=== PATIENT | female | born 1995 | race Caucasian/White ===

== ENCOUNTER 2016-12-26 15:55 | Outpatient (CLI) | payer OTHER ==
[~2016-12-26 15:55] MED LIST: ANTIOXIDANT PO; ASCO100061 PO; FOLI1TAB7 PO; SUPER FOOD PO; [UNRECOGNIZED DRUG - CODE] PO
[2016-12-26 16:39] LABS: BASO % 0.2 %; BASO ABS # 0.02 K/uL (0-0.2); EOS % 0.5 %; HEMATOCRIT 34.2 % (37-47); IG% 0.2 %; LYMPH % 10.6 %; LYMPH ABS # 1.08 K/uL (1.2-3.4); MEAN CELL VOLUME 89.5 fL (80-100); MEAN CORPUSCULAR HEMOGLOBIN 31.9 pg (25-34); MEAN PLATELET VOLUME 10.1 fL (7.4-10.4); MONO % 11.1 %; NEUT % 77.4 %; PLATELET COUNT 187 K/uL (130-400); RED BLOOD COUNT 3.82 M/uL (4.2-5.4); WHITE BLOOD COUNT 10.22 K/uL (4.8-10.8)
[2016-12-26 16:41] LABS: COMPLETE YES; MEAN CORPUSCULAR HGB CONC 35.7 g/dl (32-36)
[2016-12-26 17:03] LABS: ALKALINE PHOSPHATASE 111 U/L (45-117); ALT/SGPT 20 U/L (12-78); AST/SGOT 19 U/L (15-37); CREATININE 0.56 mg/dl (0.60-1.20); URIC ACID 2.9 mg/dl (2.6-7.2)
[2016-12-26] MEDS ORDERED: PRENTAB26 PO (18:18)
== END 2016-12-26 17:50 | disposition home or self-care (01) ==
LOC: C.LD 15:55 → C.OPB 15:55
PROVIDERS: ATTEND Obstetrics & Gynecology
DX: O99.89 Other specified diseases and conditions complicating pregnancy, childbirth and the puerperium (principal); R03.0 Elevated blood-pressure reading, without diagnosis of hypertension; Z3A.36 36 weeks gestation of pregnancy

== ENCOUNTER 2017-01-27 09:35 | Inpatient (IN) | payer OTHER ==
[~2017-01-27] VITALS: Ht 165.1 cm; Wt 85.5 kg
[~2017-01-27 09:35] MED LIST changes: -ANTIOXIDANT PO; -ASCO100061 PO; +PRENTAB26 PO; -SUPER FOOD PO; -[UNRECOGNIZED DRUG - CODE] PO
[2017-01-27 10:43] VITALS: Ht 165.1 cm; Wt 85.5 kg
[2017-01-27] MEDS ORDERED: LACTATED RINGER'S 1000ML 1,000 ML IV PRN (11:30)
[2017-01-27 11:57] LABS: HEMATOCRIT 37.5 % (37-47); MEAN CELL VOLUME 89.1 fL (80-100); MEAN CORPUSCULAR HEMOGLOBIN 31.1 pg (25-34); MEAN CORPUSCULAR HGB CONC 34.9 g/dl (32-36); MEAN PLATELET VOLUME 10.8 fL (7.4-10.4); PLATELET COUNT 212 K/uL (130-400); RED BLOOD COUNT 4.21 M/uL (4.2-5.4); WHITE BLOOD COUNT 14.52 K/uL (4.8-10.8)
[2017-01-27] MEDS: LACTATED RINGER'S 1000ML 1,000 ML IV SCH ×2 (12:27→12:39)
[2017-01-27] MEDS ORDERED: BUPIVACAINE 0.25% 30 ML VIAL ONE (12:47)
[2017-01-27] MEDS ORDERED: FENTANYL 2MCG/ML ROPIV 1.25MG/ML 100ML BAG EPI ONE (12:47)
[2017-01-27] MEDS ORDERED: EpHEDrine SULFATE INJ 50 MG/ML AMP ONE (12:47)
[2017-01-27] MEDS ORDERED: FENTANYL CITRATE INJ 50 MCG/1 ML 2 ML VIAL ONE (12:48)
[2017-01-27] MEDS ORDERED: LACTATED RINGER'S 1000ML 500 ML IV PRN (17:43)
[2017-01-27] MEDS ORDERED: NALOXONE HCL INJ 1 MG in SODIUM CHLORIDE 0.9% 1000ML 1,000 ML IV PRN (17:43)
[2017-01-27] MEDS ORDERED: EpHEDrine SULFATE INJ 50 MG/ML AMP IV PRN (17:45)
[2017-01-27] MEDS ORDERED: NALOXONE HCL INJ 0.4 MG/1 ML VIAL/CARP IV PRN (17:45)
[2017-01-27] MEDS ORDERED: DiphenhydrAMINE HCL 50 MG/ML VIAL IV PRN (17:45)
[2017-01-27] MEDS ORDERED: NALBUPHINE HCL INJ 10 MG/ML AMP IV PRN (17:45)
[2017-01-27] MEDS ORDERED: FENTANYL 2MCG/ML ROPIV 1.25MG/ML 100ML BAG EPI PRN (17:45)
[2017-01-27] MEDS ORDERED: ONDANSETRON INJ 2 MG/ML 2 ML VIAL IV PRN (17:45)
[2017-01-27] MEDS ORDERED: PROMETHAZINE HCL INJ 6.25 MG in SODIUM CHLORIDE 0.9% 50ML 50 ML IV PRN (17:45)
[2017-01-27] MEDS ORDERED: OXYTOCIN 30 UNITS/500ML NSS IV ONE (19:30)
[2017-01-27] MEDS ORDERED: MISOPROSTOL 200 MCG TAB ONE (19:56)
[2017-01-27] MEDS ORDERED: ACETAMINOPHEN 325 MG TAB PO PRN (20:00)
[2017-01-27] MEDS ORDERED: DIPHTHERIA/TETANUS/PERTUSSIS 0.5 ML SYR/VIAL IM. ONE (20:00)
[2017-01-27] MEDS ORDERED: ACETAMINOPHEN/CODEINE 300/30MG TAB PO PRN ×2 (20:00)
[2017-01-27] MEDS: DOCUSATE SODIUM 100 MG CAP PO SCH (20:00)
[2017-01-27] MEDS ORDERED: HYDROCORTISONE ACETATE 25 MG SUPP PR PRN (20:00)
[2017-01-27] MEDS ORDERED: SUPERCREAM 0.870 % 15GM JAR EXT PRN (20:00)
[2017-01-27] MEDS ORDERED: LANOLIN OINT EXT PRN ×2 (20:00)
[2017-01-27] MEDS ORDERED: BENZOCAINE 20% AER SPR 82.5 GM CAN EXT PRN (20:00)
[2017-01-27] MEDS ORDERED: IBUPROFEN 600 MG TAB PO PRN (20:00)
[2017-01-27] MEDS ORDERED: OXYTOCIN 30 UNITS/500ML NSS IV PRN (20:00)
--- NOTE | 2017-01-27 20:16 | DELIVERY SUMMARY ---
DATE OF OPERATION: 01/27/2017 The patient dilated to complete and pushed to deliver a viable male , Apgars 8 and 9 via over small vaginal laceration. Nose and mouth were bulb suctioned at the perineum. Shoulders and body delivered with ease, body cord noted. vigorous and crying at . Placenta delivered spontaneously and intact with 3-vessel cord. Cervix and sulci intact. Laceration repaired in the usual fashion using 3-0 Vicryl. This was with a single [id number] suture. Left labial hematoma noted but not expanding and left alone. Bladder drained under sterile conditions for 100 mL of urine. Bleeding did increase and therefore, bimanual massage and uterine evaluation took place and uterine tone was poor. This was despite dilute Pitocin. For that reason, 800 mcg of rectal Cytotec was administered. Uterine tone did improve. Hemostasis was deemed adequate. Mother and baby stable in recovery. Final EBL 500 mL. I attest to the content of the Intraoperative Record and any orders documented therein. Any exceptions are noted below. MTDD
[2017-01-27] MEDS: OXYTOCIN INJ 20 UNITS in LACTATED RINGER'S 1000ML 1,000 ML IV SCH (20:54)
[2017-01-27 22:20] VITALS: BP 123/73; PULSE 71; TEMP 36.7
[2017-01-27 23:40] VITALS: BP 114/70; PULSE 62; TEMP 36.9; O2SAT 99
[2017-01-28 04:00] VITALS: BP 114/68; PULSE 62; TEMP 36.9; O2SAT 100
[2017-01-28] MEDS: OXYTOCIN INJ 20 UNITS in LACTATED RINGER'S 1000ML 1,000 ML IV SCH (04:54)
[2017-01-28 07:29] LABS: HEMATOCRIT 32.4 % (37-47)
[2017-01-28 07:30] VITALS: BP 113/71; PULSE 62; TEMP 36.9
--- NOTE | 2017-01-28 07:51 | Progress Note ---
Subjective Jan 28, 2017. Subjective conversation w/ patient, physical exam Ambulation: ambulating normally Voiding: no voiding problems Diet Tolerance: Regular Diet Lochia: Small Feeding Type: Breast Feeding Comment: wants to go home today. Objective Vital Signs Date Time Temp Pulse Resp B/P Pulse Ox O2 Delivery O2 Flow Rate FiO2 01/28/17 04:00 36.9 62 20 114/68 100 Room Air 01/27/17 23:40 36.9 62 20 114/70 99 Room Air 01/27/17 23:40 99 Room Air 01/27/17 22:20 36.7 71 20 123/73 Room Air 01/27/17 22:20 Room Air Physical Exam General Appearance: WELL-APPEARING, WD/WN, NO APPARENT DISTRESS Respiratory/Chest: lungs clear Cardiovascular: regular rate, rhythm Abdomen: non tender, soft Fundus: Firm, Relation to Umbilicus (2 down) Extremities: non-tender Laboratory Results Last 24 Hours Test 01/27/17 11:45 01/28/17 06:42 White Blood Count 14.52 K/uL Red Blood Count 4.21 M/uL Hemoglobin 13.1 g/dL 11.4 g/dL Hematocrit 37.5 % 32.4 % Mean Corpuscular Volume 89.1 fL Mean Corpuscular Hemoglobin 31.1 pg Mean Corpuscular Hemoglobin Concent 34.9 g/dl RDW Standard Deviation 40.7 fL RDW Coefficient of Variation 12.6 % Platelet Count 212 K/uL Mean Platelet Volume 10.8 fL Assessment and Plan Post- Day#: 1 Continue Routine Care: stable, routine care. desires d/c home if baby ok. nursery aware. reviewed instructions. plan 6wks pp check.
--- NOTE | 2017-01-28 07:52 | Discharge Instructions ---
Discharge Instructions Date of Service Jan 28, 2017. Admission Reason for Admission: Check Labor Discharge Discharge Diagnosis / Problem: s/p delivery Discharge Goals Goal(s): Routine recovery after delivery Medications Continue Dispensed Medications: supercream, dermaplast, tucks, lansinoh Activity Recommendations Activity Limitations: as noted below . Instructions / Follow-Up Instructions / Follow-Up ACTIVITY RECOMMENDATIONS: * Gradual return to full activity over the next 2-3 weeks. * No lifting - nothing heavier than baby over the next 2-3 weeks. * Do not engage in vigorous exercise, sexual activity or sports until cleared by your physician. * Do not drive or operate any motorized equipment until cleared by your physician. * You may shower/bathe daily. MEDICATIONS: For discomfort or pain, you may use Acetaminophen (Tylenol), Ibuprofen (Advil), or Naproxen (Aleve) following the package directions. For constipation you may use Colace following the package directions. BREAST CARE: If you are not breast feeding: * Wear a supportive bra 24 hours a day for one to two weeks. * Avoid stimulating your breasts and nipples as much as possible during the first few weeks after delivery. * When taking a shower, have the warm water hit your back, not breasts. * When your breasts feel full, apply ice packs. Usually three to four times a day helps ease the discomfort. * Take a mild pain medication (Tylenol / Motrin) when you are uncomfortable. If breast feeding: * Use breast milk to lubricate nipples. Lansinoh cream may be used for sore nipples. You do not need to remove cream prior to breast feeding. If using a different brand of cream, check the label for directions regarding removal of cream prior to nursing. * Wear a supportive bra. * If having problems with breasts or breast feeding, call a clinical services consultant or your health care provider. EPISIOTOMY CARE: After delivery, if you have an episiotomy (stitches), the following steps will ease discomfort and aid healing. * For the first 24 hours after delivery, place ice packs next to your episiotomy to help reduce swelling. * After the first 24 hour-period, sitz baths, either portable or in the tub, are suggested. A shower with a shower arm sprayed over the episiotomy may be comforting. * Alejandra care should be done after each voiding and bowel movement. Squirt warm water from a plastic bottle over the perineum (region of the body between the anus and urinary opening) and pat dry. * Use Dermoplast to ease discomfort. Shake container. Carlton directly over the episiotomy. Place a Tucks on a clean sanitary pad next to your episiotomy. SPECIAL CARE INSTRUCTIONS: When you are discharged from the hospital, it is important for you to follow the instructions listed below: * During the first week at home, you should be able to care for yourself and your baby. In addition, the usual light household activities are encouraged. * Limit your activities to the way you feel. Do not try to clean the house or move furniture. Be sensible. * If you actively engage in sports and have done so up until the time of your delivery, you may resume these activities as soon as you feel able. This may take up to one month or even longer. Use good judgment. * Continue to take your vitamins for at least six weeks after the of your baby. * Your diet need not be limited unless you were on a special diet before your delivery. Breast-feeding mothers need around 2500 calories per day and at least 64-80 ounces of fluid per day (8 to 10 glasses). * You should eat foods from the four major food groups. Crash diets or fad diets are to be avoided. Eating lean meats, fresh fruits and vegetables, low-fat dairy products, high fiber foods and a regular exercise program, will help you get back to your pre- weight without putting your health at risk. * Constipation is sometimes a problem after delivery. Take a mild laxative as needed. If breast feeding, Milk of Magnesia is acceptable to use. You may use a suppository or Fleets enema if no episiotomy. * A daily shower or tub bath is suggested. Be sure to thoroughly and gently dry the perineum. * A bloody vaginal discharge will usually continue until around four weeks post . A small amount of bleeding may continue for as long as six weeks. Vaginal discharge changes from the bright red bleeding after delivery to pink then brownish and finally yellowish-pink before becoming white and disappearing. * Bleeding may increase with activity. Your first period may come in 4-8 weeks. If you are breast feeding, your period may be delayed even longer. * Angels (sex) can begin whenever both you and your partner feel comfortable and do not have any form of genital infection. It is recommended that you wait at least six weeks for internal and external healing to occur. If you have questions, please talk to your health care practitioner. A condom should be used to prevent infection and . * Foreplay, gentle intercourse and lubrication is very important the first several times to prevent pain. A water-based lubricant such as K-Y jelly or Astroglide may be used. * If you have RH negative blood and your baby is RH positive, you will receive RHOGAM by injection prior to discharge. The nurse will give you a card to keep with you that has the date and place that you received RHOGAM after delivery. * During your care, you had a Rubella screen done to check for the presence of rubella antibodies in your blood. If your test was negative, you will receive a Rubella vaccine prior to discharge. This vaccine may cause a fever, soreness at the injection site and flu-like symptoms. If these symptoms persist, notify your health care practitioner. is not advised for one month after a Rubella vaccine. * Verbalizes understanding of car seat law as reviewed with patient nursing. * Car Seat hand-out given and reviewed with patient by nursing. * Shaken baby information reviewed with patient by nursing. Call you doctor if: * Heavy bleeding (saturating several pads an hour) or passing clots the size of your fist. * A fever >101 degrees F (38.3 degrees C) on two occasions four hours apart and /or chills. * Unusual pain in the pelvic or vaginal areas. * "Baby Blues" lasting longer than two weeks. If you have any questions or concerns, call your health care practitioner at . FOLLOW UP VISIT: * Please call the office at to schedule a 6 week examination. It is important you keep this appointment. It is important for you to make arrangements for either yearly or twice yearly check-ups thereafter. Current Hospital Diet Patient's current hospital diet: Regular OB Diet Discharge Diet Recommended Diet: Regular Diet Pending Studies Studies pending at discharge: no Medical Emergencies . Who to Call and When: Medical Emergencies: If at any time you feel your situation is an emergency, please call 911 immediately. . Non-Emergent Contact Non-Emergency issues call your: Inspector Floor [employer] . . "Provider Documentation" section prepared by Loly Myers. VTE Core Measure Inpt VTE Proph given/why not?: Treatment not indicated
[2017-01-28] MEDS: DOCUSATE SODIUM 100 MG CAP PO SCH ×2 (08:00→20:34)
--- NOTE | 2017-01-28 09:12 | Anesthesia Procedure Note ---
Anesthesia Epidural Removal Nt Date & Time Jan 28, 2017 at 09:12 Vital Signs Pain Intensity: 1.0 Vital Signs Past 12 Hours Date Time Temp Pulse Resp B/P Pulse Ox O2 Delivery O2 Flow Rate FiO2 01/28/17 07:30 Room Air 01/28/17 07:30 36.9 62 20 113/71 Room Air 01/28/17 04:00 36.9 62 20 114/68 100 Room Air 01/27/17 23:40 36.9 62 20 114/70 99 Room Air 01/27/17 23:40 99 Room Air 01/27/17 22:20 36.7 71 20 123/73 Room Air 01/27/17 22:20 Room Air Notes Mental Status: alert / awake / arousable, participated in evaluation Nausea / Vomiting: adequately controlled Pain: adequately controlled Airway Patency, RR, SpO2: stable & adequate BP & HR: stable & adequate Hydration State: stable & adequate Neuraxial Anesthesia: was administered, sensory block is resolved Anesthetic Complications: no major complications apparent, pt satisfied with anesthetic care Epidural: removed without complications, with tip intact
[2017-01-28 11:45] VITALS: BP 108/64; PULSE 56; TEMP 36.6
[2017-01-28 15:30] VITALS: BP 99/61; PULSE 62; TEMP 36.9
[2017-01-28 21:45] VITALS: BP_DIAS 61; PULSE 62; TEMP 36.9
== END 2017-01-28 21:45 | disposition home or self-care (01) | DRG 775 ==
LOC: C.LD 09:35 → C.OPB 09:35 → C.LD 11:32 → C.OPB 11:38 → C.OBG 22:40
PROVIDERS: ADMIT Obstetrics & Gynecology; ATTEND Obstetrics & Gynecology
PROC: 10E0XZZ Delivery of Products of Conception, External Approach (ICD-10-PCS; principal; 2017-01-27)
PROC: 0HQ9XZZ Repair Perineum Skin, External Approach (ICD-10-PCS; principal; 2017-01-27)
DX: O48.0 Post-term pregnancy (principal); Z3A.40 40 weeks gestation of pregnancy; Z37.0 Single live birth; O71.89 Other specified obstetric trauma; O70.0 First degree perineal laceration during delivery

== ENCOUNTER 2020-06-07 13:28 | Inpatient (IN) ==
[2020-06-07] MEDS ORDERED: OXYTOCIN 30 UNITS/500 ML BAG IV PRN ×2 (13:32→17:49)
--- NOTE | 2020-06-07 13:39 | History & Physical Report ---
Date of Service June 07, 2020 Assessment & Plan (1) : Pt doing well and came from OB office. Orders placed including labs. GBS negative status. Rubella equivocal --> will plan for MMR pp. Patient planning for unmedicated . Expect . History of Present Illness Primary Care Provider: NO PCP Chandni Nesbitt is a 25 y/o female currently at 40w4d GA with an NOHEMI 020 as determined by LMP who is here for . Patient was in office and NST was not reactive but Cat I, TOCO Q2min, and cervical check showed pt to be 6cm dilated. She was sent to L&D for . + contractions; + movement; - fluid loss; + bloody show Had regular appointments with OB. Blood type: A+ Antibody screen: Neg H (03/16/20) Hct: 36% (03/16/20) Rubella: Equivocal --> plan for MMR pp VDRL/RPR: Neg (12/30/19) Gonorrhea: Neg (12/30/19) Chlamydia: Neg (12/30/19) HIV: Neg (12/30/19) HbSAg: Neg (12/30/19) GBS: Neg (05/12/20) Allergies Allergy/AdvReac Type Severity Reaction Status Date / Time No Known Allergies Allergy Verified 05/28/20 11:47 Home Medications Home Medications Medication Instructions Recorded Confirmed Type prenat.vits,luis enrique,[id number] 1 tab PO DAILY 12/30/19 05/28/20 History ferrous sulfate PO 01/27/20 05/28/20 History Patient History Medical History (Updated 04/08/20 @ 20:26 by Amandeep Rubio Jr, MD, FACOG) Abnormal biochemical finding on screening of mother Encounter for anatomic survey Ovarian cyst Torsion of ovary and ovarian pedicle 2011 Varicella vaccine Surgical History (Updated 12/30/19 @ 10:51 by Caro Parnell) History of right salpingo-oophorectomy Social History (Updated 12/30/19 @ 11:08 by Caro Parnell) Smoking Status: Never smoker Hx Alcohol Use: No Hx Substance Use: No Preferred Language: Lao Communication Ability: Effective Roll Icer Machine Required: No Beliefs That Will Affect Care: None marital status: marital status details: Reymundo Nesbitt (25) office number [phone] Current Living Situation: Spouse Current Living Situation Comment: lives with and son, no pets Feels Safe at Home: Yes Review of Systems Denies fever or chills. Denies shortness of breath or cough. Denies chest pain. Denies headache or changes in vision. Physical Exam Physical Exam: General: Alert, oriented. No acute distress. Cardiac: Regular rate and rhythm, no murmurs. Respiratory: Clear to auscultation bilaterally a/p, no wheezes/rales/rhonchi. No respiratory distress. Abdomen: Gravid. Full term. Pelvic: Dilation 7cm; Effacement 100%; Station [address] Johnson Lower Extremities: No lower extremity edema or swelling. Genitourinary: OB Exam Abdomen: + vertex, + estimated weight (6-7#) and + regular contractions Manual OB Exam: + cervical dilation 7 cm, + cervical effacement 100% and + station 0 OB Exam Monitor Tracing: + external FHT monitor used, + external uterine monitor used and + category II Supervising Physician Co-Signing Physician Notes Resident Physician Supervision Note: I interviewed and examined the patient. Discussed with Dr. Hankins and agree with findings and plan as documented in the note. Any exceptions or clarifications are listed here: [None] Documented By: Louisa Gannon MD, FACOG
[2020-06-07 14:02] LABS: Hematocrit (blood only) 38.4 % (37-47); Hemoglobin 13.6 g/dL (12.0-16.0); Mean Corpuscular Hemoglobin 33.1 pg (25-34); Mean Corpuscular Volume 93.4 fL (80-100); Mean Platelet Volume 11.6 fL (7.4-10.4); Platelet Count 207 K/uL (130-400); RDW Standard Deviation 44.3 fL (36.4-46.3); Red Blood Count 4.11 M/uL (4.2-5.4); White Blood Count 11.39 K/uL (4.8-10.8)
[2020-06-07 14:05] LABS: Mean Corpuscular Hgb Conc 35.4 g/dL (32-36)
[2020-06-07] MEDS: LACTATED RINGER'S 1,000 ML IV PRN ×2 (14:11→17:24)
[2020-06-07] MEDS ORDERED: fentaNYL citrate 100 MCG/2 ML VIAL ONE (15:19)
[2020-06-07] MEDS ORDERED: ePHEDrine sulfate 50 MG/ML AMP ONE (15:19)
[2020-06-07] MEDS ORDERED: BUPIVACAINE 0.25% 30 ML VIAL ONE (15:19)
[2020-06-07] MEDS ORDERED: fentaNYL 2MCG/ML ROPIV 1.25MG/ML 100 ML BAG EPI ONE (15:20)
--- NOTE | 2020-06-07 15:29 | Anesthesiology Consultation ---
Date of Service June 07, 2020 Assessment & Plan ASA ASA2 Proposed Anesthesia Anesthesia Type: Labor Epidural Risk / Benefits Reviewed With: PT / POA / Parent / Guardian, Accepts Plan and Informed Consent Obtained History Height/Weight Height: 5 ft 5 in Weight: 75.296 kg Allergies Allergy/AdvReac Type Severity Reaction Status Date / Time No Known Allergies Allergy Verified 05/28/20 11:47 Medications Home Medications Medication Instructions Recorded Confirmed Last Taken prenat.vits,luis enrique,[id number] 1 tab PO DAILY 12/30/19 05/28/20 Unknown ferrous sulfate PO 01/27/20 05/28/20 Unknown Active Medications Generic Name Dose Route Start Last Admin Trade Name Freq PRN Reason Stop Dose Admin Lactated Ringer's 1,000 mls @ 125 mls/hr 06/07/20 13:32 06/07/20 15:12 Lr IV 06/09/20 13:31 999 mls/hr .Q8H PRN Infusion L&D Protocol Protocol Past Medical History Medical History Abnormal biochemical finding on screening of mother Encounter for anatomic survey Ovarian cyst Torsion of ovary and ovarian pedicle 2011 Varicella vaccine Exercise / Class Metabolic Activity II 4-5 Yardwork/Stairs/Walk up hill Past Family History Family History Mother Hypertension Other Endometriosis Past Surgical History Surgical History History of right salpingo-oophorectomy Past Anesthesia History No Hx of Anesthesia Complications and No Family Hx of Anesthesia Complications History of PONV No Hx of PONV and No Hx of Motion Sickness Social History Smoking Status: Never smoker Hx Alcohol Use: No Hx Substance Use: No Review of Systems denies fever/cough/ colds/ chest pain/ SOB/ LAURYN Constitutional: no fever and no chills Respiratory: no cough and no dyspnea denies LAURYN Cardiovascular: no chest pain and no dyspnea on exertion Physical Exam Vital Signs Last Vital Signs Temp 36.9 C 06/07/20 13:50 Pulse 69 06/07/20 15:55 Resp 18 06/07/20 13:50 BP 107/65 06/07/20 15:55 Pulse Ox 95 06/07/20 15:55 ENMT Mouth: no TMJ abnormality and no dentition abnormality Thyromental Distance: > or= 3.5 Finger Breadths Mallampati Class: II Neck neck extension not limited Respiratory normal respiratory effort; no respiratory distress Auscultation: lungs clear to auscultation bilaterally Cardiovascular Rate/Rhythm: regular rate and regular rhythm Neurologic moves all extremities Psychiatric Orientation: alert and oriented x 3 Testing Laboratory Results 06/07/20 13:49
[2020-06-07] MEDS ORDERED: ePHEDrine sulfate 50 MG/ML AMP IV PRN (15:59)
[2020-06-07] MEDS ORDERED: fentaNYL 2MCG/ML ROPIV 1.25MG/ML 100 ML BAG EPI PRN (15:59)
[2020-06-07] MEDS ORDERED: NALOXONE HCL 1 MG in SODIUM CHLORIDE 0.9% 1000ML 1,000 ML IV PRN (15:59)
[2020-06-07] MEDS ORDERED: DiphenhydrAMINE HCL 50 MG/ML VIAL IV PRN (15:59)
[2020-06-07] MEDS ORDERED: NALOXONE HCL 0.4 MG/1 ML VIAL/CARP IV PRN (15:59)
[2020-06-07] MEDS ORDERED: ONDANSETRON INJ 2 MG/ML 2 ML VIAL IV PRN (15:59)
[2020-06-07] MEDS ORDERED: IBUPROFEN 600 MG TAB PO PRN (17:49)
[2020-06-07] MEDS ORDERED: MEASLES, MUMPS & RUBELLA VIRUS VIAL SQ ONE (17:49)
[2020-06-07] MEDS ORDERED: bisacodyL 10 MG SUPP PR PRN (17:49)
[2020-06-07] MEDS ORDERED: ACETAMINOPHEN 325 MG TAB PO PRN (17:49)
[2020-06-07] MEDS ORDERED: BENZOCAINE 20% AER SPR 82.5 GM CAN EXT PRN (17:49)
[2020-06-07] MEDS ORDERED: OXYCODONE/ACETAMINOPHEN 5mg/325mg TAB PO PRN (17:49)
[2020-06-07] MEDS ORDERED: SUPERCREAM 0.870% 15 GM JAR EXT PRN (17:49)
[2020-06-07] MEDS ORDERED: HYDROCORTISONE ACETATE 25 MG SUPP PR PRN (17:49)
[2020-06-07] MEDS ORDERED: DIPHTHERIA/TETANUS/PERTUSSIS 0.5 ML SYR/VIAL IM ONE (17:49)
--- NOTE | 2020-06-07 18:02 | Anesthesiology Progress Note ---
Date of Service June 07, 2020 Anesthesia Post Procedure Vital Signs Vital Signs: Temp Pulse Resp BP Pulse Ox 06/07/20 17:49 70 103/70 06/07/20 17:36 56 L 100 06/07/20 17:34 63 106/70 06/07/20 17:31 58 L 100 06/07/20 17:26 76 97 06/07/20 17:23 68 89 L 06/07/20 17:21 60 100 06/07/20 17:19 85 130/89 06/07/20 17:16 54 L 100 06/07/20 17:15 58 L 90 06/07/20 17:11 71 99 06/07/20 17:06 67 100 06/07/20 17:04 81 129/58 L 06/07/20 17:03 79 92 06/07/20 17:01 70 100 06/07/20 16:58 72 87 L 06/07/20 16:56 72 100 06/07/20 16:52 103 H 93 06/07/20 16:51 74 100 06/07/20 16:50 61 112/85 06/07/20 16:45 64 100 06/07/20 16:40 64 100 06/07/20 16:38 63 114/63 06/07/20 16:35 84 89 L 06/07/20 16:34 60 87/53 L 06/07/20 16:30 63 100 06/07/20 16:25 61 100 06/07/20 16:20 75 100 06/07/20 16:19 65 103/65 06/07/20 16:15 72 99 06/07/20 16:10 74 99 06/07/20 16:05 65 100 06/07/20 16:03 60 104/60 06/07/20 16:01 62 108/63 06/07/20 16:00 64 99 06/07/20 15:59 65 108/64 06/07/20 15:57 75 107/66 06/07/20 15:55 69 107/65 95 06/07/20 15:54 57 L 118/63 06/07/20 15:50 54 L 122/62 99 06/07/20 15:45 68 98 06/07/20 15:44 63 93 06/07/20 15:40 60 98 08/10/20 15:35 59 L 99 06/07/20 13:50 36.9 C 76 18 126/87 06/07/20 13:38 18 Transfer of Care Handoff Completed per policy Notes Mental Status: alert / awake / arousable and participated in evaluation Patient Amnestic to Procedure: Yes Nausea / Vomiting: adequately controlled Pain: adequately controlled Airway Patency, RR, SpO2: stable & adequate BP & HR: stable & adequate Hydration State: stable & adequate Anesthetic Complications: no major complications apparent and Pt Satisfied with anesthetic care
[2020-06-07] MEDS: DOCUSATE SODIUM 100 MG CAP PO SCH (20:34)
--- NOTE | 2020-06-07 21:44 | Delivery Summary ---
Vaginal Delivery Summary Date of Service June 07, 2020 Patient is a 25-year-old 2 para 1-0-0-1 white female who presents at 40+ weeks in spontaneous labor. She was 6 cm upon arrival in labor and delivery and 100% effaced. She was requesting an unmedicated , however after membranes were ruptured for a moderate amount of meconium-stained fluid at 8 cm dilation she requested epidural analgesia which was effective. She progressed to full dilation and pushed effectively over intact perineum for delivery of a viable male . After the infant's head was delivered the rest of the infant delivered easily. There was a shoulder cord present which was reduced after delivery of the head. There was poor respiratory response after the infant was placed on the mother's abdomen for stimulation and drying. After the cord was clamped and cut, the infant was taken to the baby bed for further drying and stimulation. At this time there was vigorous crying and the was moving all 4 limbs. After cord blood was obtained, the placenta was expressed intact with a three-vessel cord. Estimated blood loss was 300 cc. bleeding was controlled with dilute Pitocin. Mother and were then stable after recovery. [facility] [place] Vaginal Delivery Charge Vaginal Delivery Codes: 31550 global code for the antepartum, delivery, and post-
[2020-06-08 06:49] LABS: Hematocrit (blood only) 35.7 % (37-47); Hemoglobin 11.7 g/dL (12.0-16.0); Mean Corpuscular Hgb Conc 32.8 g/dL (32-36); Mean Corpuscular Volume 94.4 fL (80-100); Mean Platelet Volume 11.6 fL (7.4-10.4); Platelet Count 167 K/uL (130-400); RDW Coefficient of Variation 12.9 % (11.5-14.5); RDW Standard Deviation 44.1 fL (36.4-46.3); Red Blood Count 3.78 M/uL (4.2-5.4); White Blood Count 12.37 K/uL (4.8-10.8)
--- NOTE | 2020-06-08 06:50 | Obstetrical Progress Note ---
Date of Service <Merry Hankins DO - Last Filed: 06/08/20 08:10> June 08, 2020 Assessment & Plan <Merry Hankins DO - Last Filed: 06/08/20 08:10> (1) Normal course: Pt doing well this morning. Eating well, voiding well, ambulating well. Pain controlled with Ibuprofen 600mg q4h prn. Routine vaginal delivery care -- OOB, ambulation, diet progression as tolerated. Plan to continue . MMR vaccine prior to discharge (rubella equivolent on labs). After discharge, will have 6 week f/u with Dr. Johnson. Will continue to monitor. Plan for discharge later tonight. (2) Vaginal delivery: Subjective <Merry Hankins DO - Last Filed: 06/08/20 08:10> Chandni Nesbitt is a 25 y/o female who is PPD #1 following at 40w4d. She reports feeling well overall this morning. Minimal abdominal cramping and 3/10 pain controlled by self; pt has not wanted to take analgesics yet. Voiding without diffictuly or dysuria. Tolerating meals overnight and able to ambulate some. Not passing gas and no bowel movement yet. Has some persistent lochia with much improvement this morning. Currently breast feeding. Review of Systems Denies fever, chills, sweats Denies shortness of breath Denies chest pain. Denies breast pain. Denies dysuria. Denies leg pain or leg swelling. Denies headache. Physical Exam <Merry Hankins DO - Last Filed: 06/08/20 08:10> General: Alert, oriented. No acute distress. Cardiac: Regular rate and rhythm. No murmurs. Respiratory: Clear to auscultation bilaterally a/p, no wheezes/rales/rhonchi. No increased work of breathing. Symmetrical chest rise. No respiratory distress. Abdomen: Soft, nontender, nondistended. Bowel sounds present. Uterus: Uterine fundus firm, palpable 1 cm below umbilicus. Lower Extremities: No lower extremity edema or swelling. No deep calf pain. Unique's negative bilaterally. Results & Data <Merry Hankins DO - Last Filed: 06/08/20 08:10> Vital Signs (Past 12 Hours) Vital Signs Temp Pulse Pulse Resp BP BP 06/08/20 04:00 36.8 C 70 18 111/67 06/07/20 23:45 36.5 C 66 18 96/60 L 06/07/20 20:30 36.7 C 61 18 119/74 06/07/20 19:48 36.8 C 55 L 18 109/65 06/07/20 19:33 52 L 116/68 06/07/20 19:19 55 L 18 111/65 06/07/20 19:03 67 124/76 06/07/20 18:50 18 06/07/20 18:49 61 124/69 <Louisa Gannon MD, FACOG - Last Filed: 06/08/20 08:18> Co-Signing Physician Notes Resident Physician Supervision Note: I interviewed and examined the patient. Discussed with Dr. Hankins and agree with findings and plan as documented in the note. Any exceptions or clarifications are listed here: [None] Documented By: Louisa Gannon MD, FACOG
[2020-06-08] MEDS ORDERED: PRENATAL VITAMIN 1 TAB PO SCH (08:00)
[2020-06-08] MEDS: DOCUSATE SODIUM 100 MG CAP PO SCH (08:12)
[2020-06-08 16:39] VITALS: BP 108/67; PULSE 64; TEMP 97.5; O2SAT 99
[2020-06-08] MEDS ORDERED: bisacodyL 5 MG TABEC PO SCH (20:00)
== END 2020-06-08 19:30 | disposition home or self-care (01) | DRG 807 ==
LOC: 4S1 13:28 → 4S2 20:00

== ENCOUNTER 2024-01-01 07:35 | Inpatient (IN) ==
[2024-01-01] MEDS ORDERED: LIDOCAINE 1% LOCAL 20 ML VIAL INFIL PRN (07:51)
[2024-01-01 08:35] LABS: Hematocrit (blood only) 30.6 % (37.0-47.0); Hemoglobin 10.6 g/dl (12.0-16.0); Mean Corpuscular Hemoglobin 31.3 pg (25.0-34.0); Mean Corpuscular Hgb Conc 34.6 g/dL (32.0-36.0); Mean Corpuscular Volume 90.3 fL (80.0-100.0); Mean Platelet Volume 11.5 fL (9.4-12.4); Platelet Count 165 K/uL (130-400); RDW Coefficient of Variation 12.5 % (11.5-14.5); RDW Standard Deviation 40.7 fL (36.4-46.3); Red Blood Count 3.39 M/uL (4.20-5.40); White Blood Count 7.73 K/ul (4.8-10.8)
--- NOTE | 2024-01-01 10:25 | History & Physical Report ---
Date of Service January 01, 2024 Assessment & Plan (1) Encounter for induction of labor: Plan Patient is stable, without loss of fluid or blood, no contractions, with continued, observable movement. A CBC, blood bank hold tube, and oxytocin (2 mU/min starting dose, increase 2mU/min every 30 min until contractions every 2-3 min) has been ordered. Admission and Anticipated Discharge Date Admission Date: January 01, 2024 History of Present Illness Chief Complaint: induction of labor Primary Care Provider: NO PCP Patient is a , 39 weeks, 1 day confirmed via LMP. Here for Induction. PMHx of abnormal biochemical finding on screening of mother, need for vaccination against rubella, Hx of varicella vaccination, Ovarian cyst/Torsion of r. ovary and ovarian pedicle. Complications with this include none. Has been attending OB appointments regularly. Currently taking pre-micaela vitamins. Contractions: none. Fluid or Blood loss: none Movement: active Labs - Blood type, A+ - Antibody screen, neg - Hgb, 10.6 - Hct, 30.6 - Wbc, 7.73 - Plt, 165 - Rubella, Non-immune - VDRL/RPR, neg - Gonorrhea, neg - Chlamydia, neg - HIV, neg - HbSAg, neg - GBS - Glucose tolerance, 1 hr, WNL Allergies Allergy/AdvReac Type Severity Reaction Status Date / Time No Known Allergies Allergy Verified 12/31/23 14:00 Home Medications Medication Instructions Recorded Confirmed Type vits no.124-ferrous fum 1 tab PO DAILY 12/31/23 12/31/23 History 27 mg iron-folic acid 800 mcg tablet ( Vitamin) Past Med/Surg History Medical History (Updated 01/01/24 @ 11:06 by Dashawn Pride MD) Abnormal biochemical finding on screening of mother Need for vaccination against rubella Ovarian cyst Varicella vaccine Torsion of ovary and ovarian pedicle 2011 Surgical History History of right salpingo-oophorectomy Family History Mother Hypertension Other Endometriosis Social History (Updated 12/31/23 @ 17:46 by Jessa Chavira RN) Smoking Status: Never smoker Second Hand Exposure: No; Do You Dip or Chew Tobacco: No; Hx Alcohol Use: No Hx Substance Use: No Preferred Language: Pashto Communication Ability: Effective Departmental Buyer Required: No Beliefs That Will Affect Care: None marital status: marital status details: Reymundo Nesbitt [phone] Current Living Situation: Spouse and Family Current Living Situation Comment: lives with and children current occupational status: unemployed Other Information That Helps Us Care for You: No Feels Safe at Home: Yes Safety Concerns: Feels Safe At This Time Assistive Devices: None Review of Systems Constitutional: no fever, no chills, no fatigue and no weakness Eyes: no diplopia, not seeing flashes and no worsening vision Ear, Nose, Mouth, Throat: + nasal discharge and + post nasal drip; no ear pain, no sinus pain/pressure, no sore throat and no hoarseness Respiratory: + cough; no chest congestion and no dysp sophy Cardiovascular: no chest pain and no palpitations Gastrointestinal: no abdominal pain, no nausea, no vomiting, no constipation and no diarrhea/loose stools Genitourinary: + urinary frequency (baseline nml amt w/ preg); no dysuria Neurologic: no tingling, no numbness, no dizziness and no headache(s) Physical Exam Constitutional: WD/WN, vitals as above Respiratory: normal respiratory effort, lungs clear to auscultation Cardiovascular: RRR, no murmur, no edema Extremities: no calf tenderness Gastrointestinal (Abdomen): Inspection/Auscultation: abdomen normal to inspection and + abdomen distended (secondary to ) Results & Data Results & Data Vital Signs (Past 12 Hours) Vital Signs Temp Pulse BP 01/01/24 07:58 36.4 C L 01/01/24 07:53 83 114/59 L Supervising Physician Co-Signing Physician Notes Resident Physician Supervision Note: I interviewed and examined the patient. Discussed with Dr. Pride and agree with findings and plan as documented in the note. Any exceptions or clarifications are listed here: 28 yo at 39 1/7 wga presents for eIOL. VSS, fetus cat 1. SVE /-2, post, med. EFW 7-8. Will start pit. GBS neg, epidural prn Documented By: Vanna Vargas MD
[2024-01-01] MEDS: LACTATED RINGER'S 1,000 ML IV PRN (11:25)
[2024-01-01] MEDS: OXYTOCIN 30 UNITS/NSS 30 UNITS/500 ML BAG IV PRN ×2 (11:34→17:19)
--- NOTE | 2024-01-01 13:29 | Anesthesiology Consultation ---
Date of Service January 01, 2024 Assessment & Plan ASA ASA2 Proposed Anesthesia Anesthesia Type: Labor Epidural Risk / Benefits Reviewed With: PT / POA / Parent / Guardian, Accepts Plan and Informed Consent Obtained History Height/Weight Height: 5 ft 5 in Weight: 88.952 kg Allergies Allergy/AdvReac Type Severity Reaction Status Date / Time No Known Allergies Allergy Verified 12/31/23 14:00 Medications Home Medications Medication Instructions Recorded Confirmed Last Taken vits no.124-ferrous fum 1 tab PO DAILY 12/31/23 12/31/23 01/01/24 07:00 27 mg iron-folic acid 800 mcg tablet ( Vitamin) Active Medications Generic Name Dose Route Start Last Admin Trade Name Freq PRN Reason Stop Dose Admin Lactated Ringer's 1,000 mls @ 125 mls/hr 01/01/24 07:51 01/01/24 11:25 Lr IV 01/03/24 07:50 125 mls/hr .Q8H PRN Administration L&D Protocol Protocol Oxytocin 30 units in 500 mls @ 4 mls/hr 01/01/24 10:33 01/01/24 12:05 Pitocin 30 Units/Nss IV 01/03/24 10:32 0.24 units/hr .Q24H PRN 4 mls/hr Labor Induction/Augmentation Titration Protocol 0.24 UNITS/HR Past Medical History Medical History Abnormal biochemical finding on screening of mother Need for vaccination against rubella Ovarian cyst Varicella vaccine Torsion of ovary and ovarian pedicle 2011 Exercise / Class Metabolic Activity II 4-5 Yardwork/Stairs/Walk up hill Past Family History Family History Mother Hypertension Other Endometriosis Past Surgical History Surgical History History of right salpingo-oophorectomy Past Anesthesia History No Hx of Anesthesia Complications and No Family Hx of Anesthesia Complications History of PONV No Hx of PONV and No Hx of Motion Sickness Social History Smoking Status: Never smoker Do You Dip or Chew Tobacco: No Hx Alcohol Use: No Hx Substance Use: No substance use type: does not use Review of Systems denies fever/cough/ colds/ chest pain/ SOB/ LAURYN denies LAURYN Physical Exam Vital Signs Last Vital Signs Temp 36.7 C 01/01/24 11:05 Pulse 78 01/01/24 14:08 Resp 16 01/01/24 11:01 BP 102/56 L 01/01/24 14:08 Pulse Ox 95 01/01/24 14:04 ENMT Mouth: no TMJ abnormality and no dentition abnormality Thyromental Distance: > or= 3.5 Finger Breadths Mallampati Class: II Neck neck extension not limited Respiratory normal respiratory effort; no respiratory distress Auscultation: lungs clear to auscultation bilaterally Cardiovascular Rate/Rhythm: regular rate and regular rhythm Neurologic moves all extremities Psychiatric Orientation: alert and oriented x 3 Testing Laboratory Results 01/01/24 08:15
[2024-01-01] MEDS ORDERED: diphenhydrAMINE 50 MG/ML VIAL IV PRN (13:30)
[2024-01-01] MEDS ORDERED: ePHEDrine sulfate 50 MG/ML AMP IV PRN (13:30)
[2024-01-01] MEDS ORDERED: NALOXONE HCL 1 MG in SODIUM CHLORIDE 0.9% 1,000 ML IV PRN (13:30)
[2024-01-01] MEDS ORDERED: LIDOCAINE 2% MPF LOCAL 5 ML VIAL EPI PRN (13:30)
[2024-01-01] MEDS ORDERED: NALBUPHINE HCL 5 MG in SYRINGE 0 ML IV PRN (13:30)
[2024-01-01] MEDS ORDERED: NALOXONE HCL 0.4 MG/1 ML VIAL/CARP IV PRN (13:30)
[2024-01-01] MEDS ORDERED: fentaNYL citrate PF 100 MCG/2 ML VIAL EPI PRN (13:30)
[2024-01-01] MEDS ORDERED: BUPIVACAINE 0.25% PF 30 ML VIAL EPI PRN (13:30)
[2024-01-01] MEDS ORDERED: SODIUM CHLORIDE 0.9% PF INJ 10 ML VIAL EPI PRN (13:30)
[2024-01-01] MEDS ORDERED: fentANYL 2 MCG/ML BUPIVacaine 0.125%-NSS 100ML BAG EPI PRN (13:30)
[2024-01-01] MEDS ORDERED: ROPIVACAINE 0.5% PF 5 MG/ML 20 ML VIAL EPI PRN (13:30)
[2024-01-01] MEDS ORDERED: ONDANSETRON INJ 2 MG/ML 2 ML VIAL IV PRN (13:30)
[2024-01-01] MEDS: BUPIVACAINE 0.25% PF 30 ML VIAL ONE (14:03)
[2024-01-01] MEDS: LIDOCAINE 2%/EPINEPHRINE 1:200,000 20 ML PF ONE (14:04)
[2024-01-01] MEDS: SODIUM CHLORIDE 0.9% PF INJ 10 ML VIAL ONE (14:05)
[2024-01-01] MEDS: fentaNYL citrate PF 100 MCG/2 ML VIAL ONE (14:05)
[2024-01-01] MEDS: fentANYL 2 MCG/ML BUPIVacaine 0.125%-NSS 100ML BAG ONE (14:06)
[2024-01-01] MEDS: BUPIVACAINE 0.25% PF 30 ML VIAL EPI STA (14:08)
[2024-01-01] MEDS: SODIUM CHLORIDE 0.9% PF INJ 10 ML VIAL EPI STA (14:08)
[2024-01-01] MEDS: LIDOCAINE 2%/EPINEPHRINE 1:200,000 20 ML PF EPI STA (14:08)
[2024-01-01] MEDS: fentaNYL citrate PF 100 MCG/2 ML VIAL EPI STA (14:08)
--- NOTE | 2024-01-01 15:21 | Labor Progress Brief Note ---
Date of Service January 01, 2024 Subjective comfortable w/ epidural Assessment & Plan (1) Encounter for induction of labor: Plan: 28 yo at 39 1/7 wga admitted for eiol VSS Fetus cat 1 Labor - pit at 4, now s/p arom for copious fluid. Continue induction GBS neg epidural in place Admission and Anticipated Discharge Date Admission Date: January 01, 2024 Physical Exam Genitourinary: Manual OB Exam: + cervical dilation (4.5), + cervical eff acement 50%, + station -2 and + amniotic fluid (arom clear) OB Exam Monitor Tracing: + external FHT monitor used, + external uterine monitor used (q3-5) and + category I (120/mod/+accel/-decel) Results & Data Vital Signs (Past 12 Hours) Vital Signs Temp Pulse Resp BP Pulse Ox 01/01/24 15:15 18 01/01/24 15:15 18 01/01/24 15:14 97 01/01/24 15:14 69 01/01/24 15:14 68 94 01/01/24 15:13 65 99/57 L 01/01/24 15:12 67 99/59 L 01/01/24 15:09 71 99 01/01/24 15:05 16 01/01/24 15:05 97.9 F 16 01/01/24 15:04 66 96 01/01/24 15:01 63 107/60 01/01/24 15:00 16 01/01/24 15:00 16 01/01/24 14:59 73 96 01/01/24 14:54 73 96 01/01/24 14:53 75 106/64 01/01/24 14:49 69 96 01/01/24 14:45 16 01/01/24 14:45 16 01/01/24 14:44 76 95 01/01/24 14:42 72 106/59 L 01/01/24 14:39 69 97 01/01/24 14:38 68 105/56 L 01/01/24 14:34 74 97 01/01/24 14:33 86 109/60 01/01/24 14:30 16 01/01/24 14:30 16 01/01/24 14:29 73 97 01/01/24 14:28 70 102/57 L 01/01/24 14:26 80 101/58 L 01/01/24 14:24 97 01/01/24 14:24 72 01/01/24 14:24 76 99/58 L 01/01/24 14:22 74 101/59 L 01/01/24 14:20 75 100/55 L 01/01/24 14:19 75 96 01/01/24 14:18 78 101/55 L 01/01/24 14:16 75 104/57 L 01/01/24 14:15 18 01/01/24 14:15 18 01/01/24 14:14 99 01/01/24 14:14 90 01/01/24 14:14 76 110/57 L 01/01/24 14:12 78 104/58 L 01/01/24 14:10 84 106/60 01/01/24 14:09 81 96 01/01/24 14:08 78 102/56 L 01/01/24 14:06 78 106/57 L 01/01/24 14:04 81 105/59 L 95 01/01/24 14:02 79 120/58 L 01/01/24 14:00 16 01/01/24 14:00 16 01/01/24 13:59 98 01/01/24 13:59 82 01/01/24 13:59 80 108/59 L 01/01/24 13:54 70 98 01/01/24 13:49 78 98 01/01/24 13:44 88 98 01/01/24 13:34 74 108/61 01/01/24 12:35 68 106/62 01/01/24 11:34 75 117/72 01/01/24 11:05 98.1 F 74 117/69 01/01/24 11:01 16 01/01/24 11:01 16 01/01/24 07:59 18 01/01/24 07:59 18 01/01/24 07:58 97.5 F L 01/01/24 07:53 83 114/59 L Coding Level of Care Code None Diagnoses Encounter for induction of labor Z34.90
[2024-01-01] MEDS ORDERED: BENZOCAINE 20% SPRY 85 APPLN/85 GM CAN EXT PRN (16:54)
[2024-01-01] MEDS ORDERED: IBUPROFEN 600 MG TAB PO PRN (16:54)
[2024-01-01] MEDS ORDERED: OXYTOCIN 30 UNITS/NSS 30 UNITS/500 ML BAG IV PRN (16:54)
[2024-01-01] MEDS ORDERED: ACETAMINOPHEN 325 MG TAB PO PRN (16:54)
[2024-01-01] MEDS ORDERED: DIPHTHER/TETAN/PERTUS Vaccine (Tdap, Adol/Adult) 0.5mL IM ONE (16:54)
[2024-01-01] MEDS ORDERED: HYDROCORTISONE ACETATE 25 MG SUPP PR PRN (16:54)
--- NOTE | 2024-01-01 17:09 | Delivery Summary ---
Vaginal Delivery Summary Date of Service January 01, 2024 Vaginal Delivery Summary [facility] PREOPERATIVE DIAGNOSIS: 1. Single intrauterine at 39 1/7 wga 2. Elective induction POSTOPERATIVE DIAGNOSIS: 1. Single intrauterine at 39 1/7 wga 2. Elective induction 3. Shoulder dystocia 4. Delivered PROCEDURE: 1. Spontaneous vaginal delivery. SURGEON: Vanna Vargas MD ANESTHESIA: Epidural. ESTIMATED BLOOD LOSS: 300 mL FLUIDS: Continuous LR. URINE OUTPUT: None. COMPLICATIONS: Shoulder dystocia CONDITION: Stable. INDICATIONS: 28 yo at 39 1/7 wga presented today for elective IOL. On arrival was 4cm. She was started on pitocin and received an epidural for pain control. She underwent AROM and quickly progressed to complete and desired to push FINDINGS: A viable male infant, weight pending with Apgars of 8 and 9 at 1 and 5 minutes respectively. SPECIMEN: Cord blood, cord gases OPERATIVE REPORT: The patient progressed to 10 cm, 100% effaced and +2 station, pushed over intact perineum with anesthesia to deliver a viable male infant, weight and Apgars as above. Head of delivered in YOUSUF position. No nuchal cord was present. Shoulders did not deliver with gentle downward traction. Shoulder dystocia was called and head of bed laid flat. McRobert's maneuver and suprapubic pressure were performed to deliver the anterior shoulder. Simultaneously, the posterior arm began delivering spontaneously as the hand was by the face. Remainder of body delivered spontaneously after 60 second dystocia. was delivered to maternal abdomen and nursing staff. Delayed cord clamping was deferred due to shoulder. Cord was clamped and cut. Cord blood was obtained. Placenta delivered spontaneously intact with 3-vessel cord. IV oxytocin and fundal massage were given for excellent hemostasis. Vagina, cervix, perineum, and placenta were inspected. No lacerations were noted. Sponge and needle counts correct x2. No sponges were left behind. Mother and stable in immediate period. [facility] [place] Vaginal Delivery Charge Vaginal Delivery Codes: 25088 global code for the antepartum, delivery, and post- Delivery Type Details: [facility]
[2024-01-01 17:19] LABS: Base Excess Cord Arterial Bld -2.5 mEq/L (-9-1.8); CO2 Cord Arterial Blood 45 mmHg (39.1-73.5); HCO3 Cord Arterial Blood 24 mmol/L (19.7-28.5); Oxygen Sat Cord Arterial Blood < 60.0 % (<60); PO2 Cord Arterial Blood < 20 mmHg (4.1-31.7); pH Cord Arterial Blood 7.33 (7.1-7.38)
[2024-01-01 17:20] LABS: Base Excess Cord Venous Blood -1.9 mEq/L (-7.7-1.9); Cord Venous Blood HCO3 21 mmol/L (18.4-26.8); Cord Venous Blood PCO2 30 mmHg (30.4-57.2); Cord Venous Blood PO2 28 mmHg (14.1-43.3); Cord Venous Blood pH 7.45 (7.20-7.44); O2 Saturation Cord Venous Bld 64.7 % (<68)
[2024-01-01] MEDS: ePHEDrine sulfate 50 MG/ML AMP ONE (17:42)
--- NOTE | 2024-01-01 18:59 | Anesthesiology Progress Note ---
Date of Service January 01, 2024 Anesthesia Post Procedure Vital Signs Vital Signs: Temp Pulse Resp BP Pulse Ox 01/01/24 18:47 70 104/61 01/01/24 18:32 78 111/65 01/01/24 18:17 81 105/63 01/01/24 18:02 80 118/71 01/01/24 17:47 74 112/69 01/01/24 17:32 77 113/66 01/01/24 17:17 81 113/66 01/01/24 17:09 36.6 C 16 01/01/24 17:02 82 116/82 01/01/24 16:54 78 98 01/01/24 16:52 85 93/55 L 01/01/24 16:49 71 99 01/01/24 16:44 118 H 100 01/01/24 16:39 81 100 01/01/24 16:34 78 100 01/01/24 16:33 88 118/69 01/01/24 16:30 20 01/01/24 16:30 20 01/01/24 16:29 68 99 01/01/24 16:27 69 107/59 L 01/01/24 16:24 90 100 01/01/24 16:19 68 96 01/01/24 16:18 74 94 01/01/24 16:15 20 01/01/24 16:15 20 01/01/24 16:14 65 100 01/01/24 16:11 64 88/49 L 01/01/24 16:09 67 99 01/01/24 16:04 71 99 01/01/24 16:02 67 99/57 L 01/01/24 16:01 18 01/01/24 16:01 18 01/01/24 15:59 79 100 01/01/24 15:54 69 100 01/01/24 15:51 76 107/65 01/01/24 15:49 69 100 01/01/24 15:45 18 01/01/24 15:45 18 01/01/24 15:44 75 100 01/01/24 15:42 72 107/69 01/01/24 15:39 73 98 01/01/24 15:34 69 97 01/01/24 15:31 70 16 109/60 01/01/24 15:29 69 97 01/01/24 15:28 74 93 01/01/24 15:24 70 99 01/01/24 15:23 77 115/66 01/01/24 15:19 72 97 01/01/24 15:15 18 01/01/24 15:15 18 01/01/24 15:14 97 01/01/24 15:14 69 01/01/24 15:14 68 94 01/01/24 15:13 65 99/57 L 01/01/24 15:12 67 99/59 L 01/01/24 15:09 71 99 01/01/24 15:05 16 01/01/24 15:05 36.6 C 16 01/01/24 15:04 66 96 01/01/24 15:01 63 107/60 01/01/24 15:00 16 01/01/24 15:00 16 01/01/24 14:59 73 96 01/01/24 14:54 73 96 01/01/24 14:53 75 106/64 01/01/24 14:49 69 96 01/01/24 14:45 16 01/01/24 14:45 16 01/01/24 14:44 76 95 01/01/24 14:42 72 106/59 L 01/01/24 14:39 69 97 01/01/24 14:38 68 105/56 L 01/01/24 14:34 74 97 01/01/24 14:33 86 109/60 01/01/24 14:30 16 01/01/24 14:30 16 01/01/24 14:29 73 97 01/01/24 14:28 70 102/57 L 01/01/24 14:26 80 101/58 L 01/01/24 14:24 97 01/01/24 14:24 72 01/01/24 14:24 76 99/58 L 01/01/24 14:22 74 101/59 L 01/01/24 14:20 75 100/55 L 01/01/24 14:19 75 96 01/01/24 14:18 78 101/55 L 01/01/24 14:16 75 104/57 L 01/01/24 14:15 18 01/01/24 14:15 18 01/01/24 14:14 99 01/01/24 14:14 90 01/01/24 14:14 76 110/57 L 01/01/24 14:12 78 104/58 L 01/01/24 14:10 84 106/60 01/01/24 14:09 81 96 01/01/24 14:08 78 102/56 L 01/01/24 14:06 78 106/57 L 01/01/24 14:04 81 105/59 L 95 01/01/24 14:02 79 120/58 L 01/01/24 14:00 16 01/01/24 14:00 16 01/01/24 13:59 98 01/01/24 13:59 82 01/01/24 13:59 80 108/59 L 01/01/24 13:54 70 98 01/01/24 13:49 78 98 01/01/24 13:44 88 98 01/01/24 13:34 74 108/61 01/01/24 12:35 68 106/62 01/01/24 11:34 75 117/72 01/01/24 11:05 36.7 C 74 117/69 01/01/24 11:01 16 01/01/24 11:01 16 01/01/24 07:59 18 01/01/24 07:59 18 01/01/24 07:58 36.4 C L 01/01/24 07:53 83 114/59 L Transfer of Care Handoff Completed per policy Notes Mental Status: alert / awake / arousable and participated in evaluation Patient Amnestic to Procedure: Yes Nausea / Vomiting: adequately controlled Pain: adequately controlled Airway Patency, RR, SpO2: stable & adequate BP & HR: stable & adequate Hydration State: stable & adequate Anesthetic Complications: no major complications apparent and Pt Satisfied with anesthetic care
[2024-01-01] MEDS: DOCUSATE SODIUM 100 MG CAP PO SCH (20:47)
--- NOTE | 2024-01-02 05:44 | Obstetrical Progress Note ---
Date of Service <Dashawn Pride MD - Last Filed: 01/02/24 07:48> January 02, 2024 Assessment & Plan <Dashawn Pride MD - Last Filed: 01/02/24 07:48> (1) Status post induction of labor: (2) Normal vaginal delivery: Plan 29 yo , status post induction of labor, vaginal delivery from 01/02/24. - Pt doing well clinically. Feels well today. Eating well, voiding well, ambulating well. Pain well controlled with PRN pain meds. - Routine care -- OOB, ambulation, diet progression as tolerated Vital Signs reviewed and WNL. (Tmax at 36.7) Hemoglobin Reviewed. 10.6 (01/02/24). No symptoms concerning for anemia. Blood Type: A+, GBS-, Rubella Immune. Encourage ambulation, monitor and control pain with Motrin PRN, resume regular diet, monitor lochia. Breast feeding encouraged. After discharge will have 6 week follow-up with Dr. Vargas. Pt counselled on discharge instructions. <Vanna Vargas MD - Last Filed: 01/02/24 08:17> (1) Status post induction of labor: (2) Normal vaginal delivery: Subjective <Dashawn Pride MD - Last Filed: 01/02/24 07:48> Ambulation: ambulating normally Voiding: no voiding problems Passing Gas:: Yes Diet Tolerance:: regular diet Lochia:: Small Feeding Type:: breast feeding Current Pain Level(1-10): 4 (cramping pain when breast feeding) Constitutional: no fever, no chills, no fatigue or no weakness Eyes: no diplopia, no seeing flashes or no worsening vision Ear, Nose, Mouth, Throat: + nasal discharge and + post nasal drip; no ear pain, no sinus pain/pressure, no sore throat or no hoarseness Respiratory: + cough; no chest congestion or no dyspnea Cardiovascular: no chest pain or no palpitations Gastrointestinal: no abdominal pain, no nausea, no vomiting, no constipation or no diarrhea/loose stools Genitourinary (female): + urinary frequency (baseline nml amt w/ preg); no dysuria Neurologic: no tingling, no numbness, no dizziness or no headache(s) Physical Exam <Dashawn Pride MD - Last Filed: 01/02/24 07:48> Constitutional WD/WN, vitals as above Respiratory normal respiratory effort, lungs clear to auscultation Cardiovascular RRR, no murmur, no edema Extremities: no calf tenderness Gastrointestinal (Abdomen) Inspection/Auscultation: abdomen normal to inspection and + abdomen distended (secondary to ) Results & Data <Dashawn Pride MD - Last Filed: 01/02/24 07:48> Vital Signs (Past 12 Hours) Vital Signs Temp Pulse Pulse Resp BP BP Pulse Ox 01/02/24 04:00 36.8 C 67 14 112/72 98 01/01/24 22:55 36.7 C 76 15 106/68 96 01/01/24 19:55 36.8 C 78 16 109/70 97 01/01/24 19:32 76 109/67 01/01/24 19:17 78 119/69 01/01/24 19:02 77 100/55 L 01/01/24 19:00 36.7 C 18 01/01/24 18:47 70 104/61 01/01/24 18:32 78 111/65 01/01/24 18:17 81 105/63 01/01/24 18:02 80 118/71 01/01/24 17:47 74 112/69 O2 Del Method 01/02/24 04:00 Room Air 01/01/24 22:55 Room Air 01/01/24 19:55 Room Air 01/01/24 19:32 01/01/24 19:17 01/01/24 19:02 01/01/24 19:00 01/01/24 18:47 01/01/24 18:32 01/01/24 18:17 01/01/24 18:02 01/01/24 17:47 Supervising Physician <Vanna Vargas MD - Last Filed: 01/02/24 08:17> Co-Signing Physician Notes Resident Physician Supervision Note: I interviewed and examined the patient. Discussed with Dr. Pride and agree with findings and plan as documented in the note. Any exceptions or clarifications are listed here: PP1 s/p , doing well. VSS, exam benign and wnl. Desires dc, ok to do so Documented By: Vanna Vargas MD
[2024-01-02] MEDS: FERROUS SULFATE 325 MG TAB PO SCH (08:26)
[2024-01-02] MEDS: PRENATAL VITAMIN 1 TAB PO SCH (08:26)
== END 2024-01-02 18:25 | disposition home or self-care (01) | DRG 807 ==
LOC: 4S1 07:35 → 4E2 19:57